=== PATIENT | male | born 1970 | race Two or more races ===

== ENCOUNTER 2022-03-08 16:11 | Emergency (ER) | payer SELFPAY ==
[~2022-03-08] VITALS: Ht 165.1 cm; Wt 78.6 kg
[2022-03-08 16:54] LABS: BASOPHILS # (AUTO) 0.1 X10'3 (0-0.2); BASOPHILS % (AUTO) 0.4 % (0-1); EOSINOPHILS # (AUTO) 0.2 X10'3 (0-0.9); EOSINOPHILS % (AUTO) 1.1 % (0-6); HEMATOCRIT 42.2 % (42.0-52.0); HEMOGLOBIN 13.8 g/dl (14.0-17.9); LYMPHOCYTES # (AUTO) 3.2 X10'3 (1.1-4.8); LYMPHOCYTES % (AUTO) 20.1 % (21-51); MEAN CORPUSCULAR HEMOGLOBIN 29.7 PG (27.0-31.0); MEAN CORPUSCULAR HGB CONC 32.7 g/dL (33.0-36.5); MEAN CORPUSCULAR VOLUME 90.6 FL (78-98); MEAN PLATELET VOLUME 8.5 FL (7.4-10.4); MONOCYTES # (AUTO) 1.2 X10'3 (0-0.9); MONOCYTES % (AUTO) 7.4 % (2-12); NEUTROPHILS # (AUTO) 11.3 X10'3 (1.8-7.7); PLATELET COUNT 289 X10'3 (140-440); RED BLOOD COUNT 4.66 X10'6 (4.70-6.10); RED CELL DISTRIBUTION WIDTH 13.8 % (11.5-14.5); WHITE BLOOD COUNT 15.9 X10'3 (4.5-11.0)
[2022-03-08 17:14] LABS: ALANINE AMINOTRANSFERASE 28 U/L (12-78); ALBUMIN 4.3 G/DL (3.4-5.0); ALBUMIN/GLOBULIN RATIO 1.2 (1.1-1.5); ALKALINE PHOSPHATASE 57 IU/L (46-116); ANION GAP 10 (8-16); ASPARTATE AMINO TRANSFERASE 23 U/L (10-37); BILIRUBIN,TOTAL 0.3 MG/DL (0.1-1.0); BLOOD UREA NITROGEN 16 MG/DL (7-18); BUN/CREATININE RATIO 14.7 (5.4-32.0); CHLORIDE 106 MMOL/L (99-107); CREATININE 1.09 MG/DL (0.60-1.10); GLUCOSE 136 MG/DL (70-104); POTASSIUM 3.9 MMOL/L (3.5-5.1); SODIUM 139 MMOL/L (135-145); TOTAL CARBON DIOXIDE 23.2 MMOL/L (24-32); eGFR 72 ML/MIN
[2022-03-08 17:18] LABS: CLARITY,URINE SLIGHTLY CLOUDY (Clear); COLOR,URINE YELLOW (Yellow); GLUCOSE, URINE NEGATIVE (Neg); KETONES,URINE NEGATIVE (Neg); LEUKOCYTE ESTERASE ,URINE NEGATIVE (Neg); NITRITES, URINE NEGATIVE (Neg); OCCULT BLOOD,URINE LARGE (Neg); PH,URINE 5.5 (4.8-8.0); PROTEIN,URINE TRACE mg/dl (Neg); UROBILINOGEN,URINE 0.2 E.U/dL (0.2-1.0)
[2022-03-08 17:19] LABS: UA COLLECTION TYPE VOIDED
[2022-03-08 17:31] LABS: WBC,URINE 0-4 /HPF (0-4)
[2022-03-08 17:32] LABS: CAL OXALATE CRYSTALS 3+ /HPF (NEGATIVE)
[2022-03-08 17:33] LABS: HYALINE CASTS 0-3 /LPF (NEGATIVE); MUCUS STRANDS FEW /LPF (Neg); SQUAMOUS EPITHELIAL CELL,UR FEW /LPF (FEW)
[2022-03-08 17:34] LABS: BACTERIA,URINE NONE SEEN /HPF (Neg)
[2022-03-08] MEDS ORDERED: ondansetron/PF 4mg/2ml inj IV ONE (18:00)
[2022-03-08] MEDS ORDERED: normal saline 1000ML IV soln IVB ONE (18:00)
[2022-03-08] MEDS ORDERED: CefTRIAXone 2gm/NS 100ml IVPB 100 ML IV ONE (18:05)
[2022-03-08] MEDS ORDERED: ketorolac trometh. 30mg/ml inj. IV ONE (18:05)
[2022-03-08] MEDS ORDERED: morphine 4 MG/ML inj SYRINge IV ONE (18:05)
[2022-03-08] MEDS ORDERED: tamsulosin 0.4mg capsule PO STA (18:46)
[2022-03-08] MEDS ORDERED: HYDROcodone/acetaminophen 5mg/325mg tablet PO ONE (18:55)
[2022-03-08] MEDS ORDERED: FLO0.4C PO (19:09)
[2022-03-08] MEDS ORDERED: ONDA4TAB12 PO (19:09)
[2022-03-08] MEDS ORDERED: NAPR-56 PO (19:09)
[2022-03-08] MEDS ORDERED: HYDR-3965 PO ×2 (19:09→19:11)
[2022-03-08 19:48] VITALS: BP 118/76
== END 2022-03-08 19:52 | disposition home or self-care (01) ==
LOC: ER 16:12
DX: N20.0 Calculus of kidney (principal); R11.2 Nausea with vomiting, unspecified; Z79.899 Other long term (current) drug therapy
CPT/HCPCS: 36415; 74018; 74176; 80053; 81001; 85025; 96361; 96365; 96375; 99285; J0696; J1885; J2270; J2405; J7030

== ENCOUNTER 2025-04-19 10:26 | Inpatient (IN) | payer MEDICAID ==
[~2025-04-19] VITALS: Ht 167.6 cm; Wt 76.8 kg
[~2025-04-19 10:26] MED LIST: ONDA-243 PO
[2025-04-19 11:15] LABS: MEAN PLATELET VOLUME 7.7 FL (7.4-10.4); RED CELL DISTRIBUTION WIDTH 13.8 % (11.5-14.5)
[2025-04-19 11:39] LABS: CREATININE 1.07 MG/DL (0.60-1.10); TOTAL CARBON DIOXIDE 24.6 MMOL/L (24-32); eCRCL 72 ML/MIN; eGFR 72 ML/MIN
[2025-04-19 13:06] LABS: LEUKOCYTE ESTERASE ,URINE NEGATIVE (Neg); NITRITES, URINE NEGATIVE (Neg); OCCULT BLOOD,URINE MODERATE (Neg)
[2025-04-19 13:11] LABS: UA COLLECTION TYPE CLN CATCH MIDSTREAM
[2025-04-19 13:12] LABS: MUCUS STRANDS MODERATE /LPF (Neg); SQUAMOUS EPITHELIAL CELL,UR FEW /LPF (FEW)
--- NOTE | 2025-04-19 14:49 | Physician Documentation ---
History of Present Illness Chief Complaint: Abdominal Pain Stated Complaint: ABDOMINAL PAIN Time Seen by MD: 12:49 OK to notify your PCP?: Yes Primary Medical Doctor: NONE Source: patient Mode of Arrival: POV Exam Limitations: no limitations HPI 54-year-old male presents for generalized body pain, body aches, watery/foul smelling diarrhea and abdominal pain for the past 3 days. He denies any recent antibiotic use or travel. He denies any new foods or medications. He does have a history of kidney stones but states that this feels completely different. Denies any vomiting. He states any time that he drinks or eats anything he immediately has diarrhea 30 minutes after. Medication Reconciliation Allergies: Coded Allergies: No Known Allergies (Unverified , 04/19/25) Scheduled PRN ONDANSETRON ODT 4mg tablet (Ondansetron Odt), 1 TABLET PO Q6H PRN for resp rate < 8/min or SBP < 90 Past Medical History Past Medical History: No Pertinent History Past Surgical History: noncontributory Smoking Status: Former smoker Alcohol Use: None Drug Use: none Lives In: Home Review of Systems All Other Systems at this time: Reviewed and Negative Physical Exam Vital Signs: RN Vital Signs have been reviewed: Yes, Temperature: 99.3, Source: Oral, Heart Rate: 74, Respiratory Rate: 14, BP: 112/64, Pulse Oximetry: 99, Weight: 76.800 Oxygen Flow Rate: 0 Pulse Oximetry Reflects: adequate oxygenation Physical Exam General: Alert, no apparent distress. HEENT: PERRL, EOMI, no injection, moist mucous membranes. Neck: Full range of motion. Respiratory: Lungs clear, no respiratory distress. Chest: No accessory muscle use. Cardiovascular: Regular rate and rhythm, no murmurs. Gastrointestinal: Soft, nondistended. Bowels sounds hyperactive. Tenderness to palpation to left and right lower quadrant. No rebound tenderness or guarding. Extremities: Normal range of motion, no deformity. Back: Midline tenderness. CVA tenderness on the right side. Neurologic: Oriented x4. Psychiatric: Normal mood and affect. Skin: Normal color, warm and dry. No edema, no ecchymosis. Progress Results/Orders Reviewed/noted all lab results: Yes Results/Orders Orders - FAITH COLLAZOP Ct Abdomen Pelvis (04/19/25 14:02) Completed Orders - FAITH COLLAZO [facility] Ct Abdomen Pelvis (04/19/25 14:02) Ketorolac Trometh 15mg/Ml Vial (Toradol (04/19/25 14:25) Vital Signs 04/19/25 04/19/25 04/19/25 04/19/25 10:51 12:23 13:50 14:04 Temp 99.3 Pulse 77 74 74 Resp 18 16 14 B/P (MAP) 128/77 117/64 (81) 112/64 (80) Pulse Ox 98 99 99 O2 Flow Rate 0 0 Laboratory Tests Test 04/19/25 11:09 04/19/25 12:48 White Blood Count 9.8 Red Blood Count 4.52 L Hemoglobin 13.7 L Hematocrit 40.8 L Mean Corpuscular Volume 90.2 Mean Corpuscular Hemoglobin 30.4 Mean Corpuscular Hemoglobin Concent 33.7 Red Cell Distribution Width 13.8 Platelet Count 208 Mean Platelet Volume 7.7 Neutrophils (%) (Auto) 85.9 H Lymphocytes (%) (Auto) 9.0 L Monocytes (%) (Auto) 4.8 Eosinophils (%) (Auto) 0 Basophils (%) (Auto) 0.3 Neutrophils # (Auto) 8.4 H Lymphocytes # (Auto) 0.9 L Monocytes # (Auto) 0.5 Eosinophils # (Auto) 0.0 Basophils # (Auto) 0.0 CBC Comment Sodium Level 134 L Potassium Level 4.0 Chloride Level 101 Carbon Dioxide Level 24.6 Anion Gap 8 Blood Urea Nitrogen 8 Creatinine 1.07 Estimated GFR/1.73 m2 72 BUN/Creatinine Ratio 7.5 L Glucose Level 109 H Calcium Level 8.3 L Total Bilirubin 0.4 Aspartate Amino Transf (AST/SGOT) 20 Alanine Aminotransferase (ALT/SGPT) 26 Alkaline Phosphatase 51 Total Protein 7.4 Albumin 3.3 L Globulin 4.1 Albumin/Globulin Ratio 0.8 L Lipase 33 Chemistry Comments Urine Specimen Description Cln catch midstream Urine Color Yellow Urine Clarity Clear Urine pH 6.0 Urine Specific [place] >=1.030 Urine Protein 30 H Urine Glucose (UA) Negative Urine Ketones 40 H Urine Occult Blood Moderate H Urine Nitrite Negative Urine Bilirubin Small Urine Urobilinogen 0.2 Urine Leukocyte Esterase Negative Urine RBC 3-10 Urine WBC 0-4 Urine Squamous Epithelial Cells Few Urine Bacteria None seen Urine Mucus Moderate Urine Culture Indicated Not ind Volume Urine Centrifuged 10 ml Urine Comment EKG/XRAY/CT/US/VASC/MRI CT : Impression Abdomen/pelvis CT scan as interpreted by me; no free air, no small-bowel obstruction, no kidney stones. Diffuse wall thickening of the entire colon and fat stranding consistent with acute forrest colitis. Normal appendix. Medical Decision Making Additional info obtained from: old records, family Findings 54-year-old male with lower abdominal pain, body aches, watery/foul smelling diarrhea for the past 3 days. For sinus and then wrap was he does have some CVA tenderness on physical exam but his CT does not show any kidney stones. He does have a history kidney stones but this feels completely different he states. His urinalysis shows protein, ketones and occult blood. CT of his abdomen and pel vis does show that he has forrest colitis. He reports he has never had symptoms like this before and does not have a history of colitis. Has not had any antibiotics recently so I do not think that this is c diff, but I ordered a stool culture and C diff test to be sure. he is having some severe pain so I treated him with morphine, zofran, fluids and started Zosyn. I discussed this c ase with Dr. Self who recommended admission. Awaiting call from hospitalist. 1702: With hospitalist, Dr. Gonzalez, who accepted admission for colitis. Differential Dx:Considerations: Include: Bowel obstruction, Diverticular disease, Gastritis/PUD, Gastroenteritis, GI hemorrhage, Inflammatory BD, Urinary obstruction, Urinary tract infection, Urolithiasis Departure Disposition: 09 ADMITTED INPATIENT Impression: Primary Impression: Colitis Condition: Stable Referrals: NO PRIMARY CARE PROVIDER (PCP) Additional Comment Medical Screen Exam This patient recieved a medical screening examination. After reviewing the individual's medical complaints with presenting symptoms and performing an appropriate physical examination, it was determined that no immediate life- threatening emergency medical condition is present. This individual is also not a women having contractions. Signature Scribe Signature: . Attestation: Scribed for Faith Collazo by Faith Shah NP . 04/19/25 17:04 Parts of this note were created using [email or web address] voice recognition software program. While efforts were made to correct any mistakes made by this voice recognition software program, nonsensical phrases may remain in this note. In addition, there may be errors and syntax, grammar, content and spelling. FAITH COLLAZO [facility] Apr 19, 2025 14:49
[2025-04-19] MEDS: ketorolac trometh 15mg/ml vial 15 MG/ML ML IM ONE (14:50)
--- NOTE | 2025-04-19 15:18 | RADIOLOGY REPORT ---
Exam: CT CT ABDOMEN PELVIS History: Blood in urine, diarrhea, abd pain Comparison Study: CT ABDOMEN PELVIS on DOS: 03/08/22 Technique: Multidetector spiral CT of the abdomen and pelvis was performed from lung bases to pubic s ymphysis. Imaging was performed without intravenous contrast. Coronal and sagittal multiplanar reform ats were obtained from the axial data set by the technologist. Radiation Dose : 1. Abdomen/Pelvis: CTDIvol 14.3 mGy, DLP 723.2 mGy*cm. Findings: Evaluation of vasculature and solid organs is limited due to lack of intravenous contrast use. Lung Bases: Lung bases are clear. Visualized portions of the heart and pericardium are unremarkable. Liver: The liver is normal in size. No focal lesions. Diffusely hypoattenuating liver parenchyma con sistent with hepatic steatosis. Gallbladder and Biliary Tree: The gallbladder is unremarkable. No intrahepatic or extrahepatic biliar y ductal dilatation. Spleen: Unremarkable Pancreas: The pancreas is grossly unremarkable. Adrenal Glands: Unremarkable Kidneys: Kidneys are unremarkable without calculi or hydronephrosis. GI tract: The stomach is underdistended with gas seen in the ruggae. No small bowel obstruction. Dif fuse wall thickening of the entire colon and fat stranding consistent with acute colitis. Normal appe ndix. Peritoneum/mesentery/retroperitoneum. No evidence of free intraperitoneal air. No ascites. No evidenc e of suspicious lymphadenopathy. Abdominal Wall: There is a fat containing left inguinal hernia. Vasculature: The visualized abdominal aorta is normal in size and caliber. Evaluation of abdominal a nd pelvic vessels is limited due to lack of intravenous contrast. Urinary Bladder: Grossly unremarkable for degree of distention. Pelvic Organs: Unremarkable Musculoskeletal: No aggressive focal bony lesions, acute fractures or dislocation. IMPRESSION: 1. Acute forrest colitis. 2. Hepatic steatosis.
[2025-04-19] MEDS: piperacillin/tazo 3.375gm/50ml 50 ML IV ONE (16:03)
[2025-04-19] MEDS: ondansetron/PF 4mg/2ml inj IV ONE (16:03)
[2025-04-19] MEDS: normal saline 1000ML IV soln IVB ONE (16:03)
[2025-04-19] MEDS: morphine 4 MG/ML inj SYRINge IV ONE (16:04)
--- NOTE | 2025-04-19 17:28 | HISTORY AND PHYSICAL ---
History & Physical Providers to ~ History of Present Illness Reason for Admit\Complaint: Diarrhea and abdominal pain History of Present Illness 54 years old male presented to the ER for evaluation of abdominal pain and diarrhea x3 days. Patient states he has been having fever up to 104 0.7. His checked it and he has been taking Tylenol at home without much relief. Patient describes his pain as cramping mostly in the midabdomen region He denies having any hematemesis melena or bright red blood per rectum. Denies having any vomiting but has nausea. Patient has not had any recent travel or antibiotic use. Patient states he has generalized aches and pains as well. Denies having any palpitations orthopnea PND ankle tara, hematuria urinary frequency or urgency. Denies having any focal neurological symptoms. He has been evaluated with a CT scan of the abdomen and pelvis which shows acute pancolitis. Patient is being admitted for further treatment Allergies: Coded Allergies: No Known Allergies (Unverified , 04/19/25) Home Medications Home Medications Active Ondansetron Odt (Ondansetron HCl) 4 Mg Tab.rapdis 1 Tablet PO Q6H PRN Past Medical History Past Medical History None Past Surgical History Surgical History Comment None Family History Family History: Family history was reviewed; no changes noted. Past Social History Social History Comment Does not smoke drink or do any drugs. Patient lives at home with his . Works as a social service coordinator Health Maintenance Health Maintenance Not current on his immunizations ROS ROS All other systems are reviewed and are negative except as mentioned in HPI Exam Vitals: Vital Signs Date Time Temp Pulse Resp B/P (MAP) Pulse Ox O2 Delivery O2 Flow Rate FiO2 04/19/25 16:35 62 15 103/58 (73) 99 0 04/19/25 10:51 99.3 General: Awake alert oriented in no acute distress. Sick-looking male HEENT: Normocephalic atraumatic pupils round reactive to light and accommodation, extraocular movements intact, sclera anicteric, conjunctiva pinkish, moist oral mucosa, no rash or ulcers. Neck: Supple, no JVD, trachea midline, no lymphadenopathy. Chest: Clear to auscultation, no wheezes crackles or rhonchi. Cardiovascular: Regular rate rhythm, no murmur gallop or rub. Abdomen: Soft, tender in the midabdomen, positive bowel sounds Extremities: no cyanosis clubbing or edema Central Nervous System: Nonfocal. Moves all four extremities Musculoskeletal: No joint swelling or deformities Skin: No rash or ulcers Diagnostic Data Last Recorded Lab Results: 04/19/25 1109 04/19/25 1109 Additional Plan 54 years old male presented to the ER for evaluation of fever, abdominal pain. 1. Acute pancolitis: We will start him on IV Rocephin and Flagyl. 2. Code status: Full code 3. GI prophylaxis: Pepcid 4. DVT prophylaxis: SCDs and early ambulation Date of Service: Apr 19, 2025 Billing Provider: RAJAN TONY MD Common Visit Codes: [id number] INP/OBS CARE (MOD) RAJAN TONY MD Apr 19, 2025 17:28
[2025-04-19] MEDS ORDERED: potassium Cl 40MEQ/1/2NS 520ml 520 ML IV PRN (17:30)
[2025-04-19] MEDS ORDERED: magnesium sulf-water 2g/50mL 50 ML IV PRN ×2 (17:30)
[2025-04-19] MEDS ORDERED: magnesium Cl slow-release 64mg tablet PO PRN ×2 (17:30)
[2025-04-19] MEDS ORDERED: ondansetron/PF 4mg/2ml inj IV PRN (17:30)
[2025-04-19] MEDS ORDERED: potassium Cl 20 mEq SR tablet PO PRN ×2 (17:30)
[2025-04-19] MEDS ORDERED: magnesium sulf-water 4G/100mL 100 ML IV PRN ×2 (17:30)
[2025-04-19] MEDS: normal saline 1000ml 1,000 ML IV SCH (19:26)
[2025-04-19] MEDS: CefTRIAXone/D5W-Rocephin 1gm 50 ML IV SCH (20:00)
[2025-04-19] MEDS: K and/or MAG REPLACEMENT MC SCH (20:05)
[2025-04-19] MEDS ORDERED: OMEP40CA21 PO (22:20)
[2025-04-19] MEDS: metroNIDAZOLE-Flagyl 500mg/NS 100 ML IV SCH (23:00)
[2025-04-19 23:07] VITALS: RESP 18; O2SAT 98
[2025-04-20 00:40] VITALS: BP 107/65; PULSE 64; RESP 18; TEMP 99.2; O2SAT 98
[2025-04-20 05:46] LABS: MEAN PLATELET VOLUME 8.5 FL (7.4-10.4); RED CELL DISTRIBUTION WIDTH 13.7 % (11.5-14.5)
[2025-04-20 06:00] VITALS: BP 89/55; PULSE 65; RESP 18; TEMP 98.2; O2SAT 98
[2025-04-20 06:08] LABS: CREATININE 0.78 MG/DL (0.60-1.10); TOTAL CARBON DIOXIDE 21.0 MMOL/L (24-32); eCRCL 99 ML/MIN; eGFR > 90 ML/MIN
--- NOTE | 2025-04-20 08:41 | PROGRESS NOTE ---
Daily Progress Note Providers to CC ~ Objective Vital Signs Date Time Temp Pulse Resp B/P (MAP) Pulse Ox O2 Delivery O2 Flow Rate FiO2 04/20/25 00:40 99.2 64 18 107/65 (79) 98 Room Air 04/19/25 20:30 0 Result Diagram: 04/20/25 0501 04/20/25 0501 RAJAN TONY MD Apr 20, 2025 08:41
[2025-04-20 10:00] VITALS: BP 106/67; PULSE 67; RESP 17; TEMP 98.1; O2SAT 97
[2025-04-20 11:03] LABS: C DIFF ANTIGEN NEGATIVE (NEGATIVE); C DIFF SPECIMEN=DIARRHEA? ACCEPTABLE; C DIFFICILE TOXINS A&B NEGATIVE (Neg)
[2025-04-20] MEDS ORDERED: METR-159 PO (12:54)
[2025-04-20] MEDS ORDERED: CIPR-458 PO (12:54)
--- NOTE | 2025-04-20 17:42 | DISCHARGE SUMMARY ---
Discharge Summary Providers to CC ~ Discharge Summary Admission Diagnosis: PANCOLITIS Hospital Course DATE OF ADMISSION: DATE OF DISCHARGE: RAJAN TONY MD Apr 20, 2025 17:42
== END 2025-04-20 16:06 | disposition home or self-care (01) | DRG 249 ==
LOC: ER 10:26 → ED HOLD 17:33 → ORTHO 4S 22:29
PROVIDERS: ADMIT Internal Medicine; ATTEND Internal Medicine
DX: K52.89 Other specified noninfective gastroenteritis and colitis (principal); Z87.891 Personal history of nicotine dependence
CPT/HCPCS: 36415; 74176; 80048; 80053; 81001; 83690; 83735; 84484; 85025; 87045; 87046; 87081; 87324; 87449; 96365; 96372; 99285; G0378; J0696; J1885; J2405; J2543; J3490; J7030